=== PATIENT | female | born 1995 | race African-American/Black ===

== ENCOUNTER 2024-03-08 17:47 | Emergency (ER) | payer SELFPAY ==
[~2024-03-08] VITALS: Ht 167.6 cm; Wt 101.0 kg
[2024-03-08 17:50] VITALS: BP 128/78; PULSE 76; RESP 16; TEMP 98.1; O2SAT 98
[2024-03-08 19:25] LABS: HCG SCREEN NEGATIVE
== END 2024-03-08 22:46 | disposition left against medical advice (07) ==
LOC: ER 17:47
DX: S09.90XA Unspecified injury of head, initial encounter (principal); I10 Essential (primary) hypertension; W18.39XA Other fall on same level, initial encounter; Y93.89 Activity, other specified; Y92.89 Other specified places as the place of occurrence of the external cause; Y99.8 Other external cause status
CPT/HCPCS: 84703; 99284